=== PATIENT | male | born 1995 | race African-American/Black ===

== ENCOUNTER 2019-09-26 08:00 | Emergency (ER) | payer OTHER ==
[~2019-09-26] VITALS: Ht 180.3 cm; Wt 81.6 kg
[2019-09-26 08:24] VITALS: BP 138/74
[2019-09-26] MEDS ORDERED: SODIUM CHLORIDE 0.9% 1,000 ML IVB ONE (08:51)
[2019-09-26] MEDS ORDERED: PANTOPRAZOLE 40 MG/10 ML VIAL INJ IV ONE (09:00)
[2019-09-26] MEDS ORDERED: PROMETHAZINE HCL 25 MG/ML 1ML IV ONE (09:00)
[2019-09-26 09:18] LABS: Basophils # (auto) 0.1 uL; Basophils % (auto) 0.6 % (0.0-2.0); Eosinophils # (auto) 0 uL; Hematocrit 48.5 % (41.0-53.0); Hemoglobin 16.4 g/dL (13.5-17.5); Lymphocytes # (auto) 1.8 uL; Lymphocytes % (auto) 18.5 % (10.0-50.0); Mean Corpuscular Hemoglobin 31.5 pg (28.0-32.0); Mean Corpuscular Hgb Conc. 33.7 g/dL (32.0-36.0); Mean Corpuscular Volume 93.5 fL (80.0-100.0); Monocytes # (auto) 1.1 uL; Monocytes % (auto) 11.2 % (0.0-12.0); Neutrophils # (auto) 6.9 uL; Neutrophils % (auto) 69.7 % (37.0-80.0); Nucleated Red Blood Cells % 0.1 %; Platelet Count (auto) 185 10^3/uL (140-450); Red Blood Cells 5.19 10^6/uL (4.5-5.90); Red Cell Distribution Width 12.3 % (11.8-14.3); White Blood Cell 9.9 10^3/uL (4.4-10.8)
[2019-09-26 09:33] LABS: Albumin 4.3 g/dL (3.4-5.0); Calcium 9.6 mg/dL (8.5-10.1); Potassium 4.8 mmol/L (3.5-5.1)
[2019-09-26 09:35] LABS: BUN/Creatinine Ratio 9.8
[2019-09-26 09:38] LABS: Bilirubin, Total 0.6 mg/dL (0.2-1.0); Total Protein 8.4 g/dL (6.4-8.2)
== END 2019-09-26 10:14 | disposition home or self-care (01) ==
LOC: ER 08:06
DX: K52.9 Noninfective gastroenteritis and colitis, unspecified (principal)
CPT/HCPCS: 36415; 76705; 80053; 83690; 85025; 96361; 96374; 96375; 99284; C9113; J2550

== ENCOUNTER → 2020-03-15 | Emergency (ER) | payer OTHER ==
[~2020-03-15] VITALS: Ht 177.8 cm; Wt 83.9 kg
[~2020-03-15] MED LIST: HYDROcodone-ACET 5/325MG TAB PO ONE
[2020-03-15 21:05] VITALS: BP 162/93
== END | disposition home or self-care (01) ==
LOC: ER 20:49
DX: S43.401A Unspecified sprain of right shoulder joint, initial encounter (principal); S43.101A Unspecified dislocation of right acromioclavicular joint, initial encounter; V49.9XXA Car occupant (driver) (passenger) injured in unspecified traffic accident, initial encounter; Y93.89 Activity, other specified; Y92.89 Other specified places as the place of occurrence of the external cause; Y99.8 Other external cause status
CPT/HCPCS: 73030